=== PATIENT | female | born 1985 | race Caucasian/White ===

== ENCOUNTER 2020-02-07 11:59 | Outpatient (CLI) | payer BC | END 2020-02-07 12:00 | disposition home or self-care (01) | LOC: COV 11:59 | PROVIDERS: ATTEND Family Medicine | DX: R05 Cough (principal); J02.9 Acute pharyngitis, unspecified; Z20.828 Contact with and (suspected) exposure to other viral communicable diseases ==

== ENCOUNTER 2021-05-28 15:13 | Outpatient (CLI) | payer BC, OTHER ==
--- NOTE | 2021-05-28 18:23 | XRAY Report ---
PROCEDURE: Toe(s) LT INDICATIONS: LEFT GREAT TOE PAIN TECHNIQUE: 2 views of the left first toe(s) acquired. COMPARISON: None FINDINGS: Bones: Mildly displaced fracture involving the left first distal phalange. Soft tissues: No suspicious soft tissue densities. IMPRESSION: Left first distal phalange fracture. Reviewed by: Kim Rowe MD, PhD on 05/28/2021 5:22 PM [facility] Approved by: Kim Rowe MD, PhD on 05/28/2021 5:22 PM [facility] Station ID: [id number]
== END 2021-05-28 23:59 | disposition home or self-care (01) ==
LOC: DI.N 15:13
PROVIDERS: ATTEND Family Medicine
DX: S92.422A Displaced fracture of distal phalanx of left great toe, initial encounter for closed fracture (principal)
CPT/HCPCS: 73660

== ENCOUNTER 2021-07-15 15:15 | Outpatient (CLI) | payer BC, OTHER ==
--- NOTE | 2021-07-15 15:57 | XRAY Report ---
PROCEDURE: Toe(s) LT INDICATIONS: NONDISPLACED FX OF PROXIMAL PHALANX OF L GREAT TOE TECHNIQUE: 3 views of the first toe(s) acquired. COMPARISON: May 28, 2021 FINDINGS: BONES: Redemonstrated fracture deformity of the first distal phalanx. The fracture line appears less distinct, compatible with ongoing healing. SOFT TISSUES: Edema about the fracture site. IMPRESSION: 1.Ongoing healing of the patient's first distal phalanx fracture. Reviewed by: Manuel Savage MD on 07/15/2021 3:56 PM PST Approved by: Manuel Savage MD on 07/15/2021 3:56 PM PST Station ID: [id number]
== END 2021-07-15 23:59 | disposition home or self-care (01) ==
LOC: DI.N 15:15
PROVIDERS: ATTEND Physician Assistant
DX: S92.422D Displaced fracture of distal phalanx of left great toe, subsequent encounter for fracture with routine healing (principal)
CPT/HCPCS: 73660

== ENCOUNTER 2021-07-26 13:10 | Emergency (ER) | payer BC, OTHER ==
[2021-07-26 13:20] VITALS: BP 137/76
--- NOTE | 2021-07-26 13:26 | ED Physician Documentation ---
PD HPI LOWER EXT INJURY - Stated complaint Stated Complaint: RT FOOT PX - Chief complaint Chief Complaint: Ext Problem - History obtained from History obtained from: Patient (Inversion injury of the right foot yesterday and now pain at the proximal fifth metatarsal without other injuries. She is able to walk and bear weight. Declines pain medication.) Review of Systems Constitutional: reports: Reviewed and negative Eyes: reports: Reviewed and negative Ears: reports: Reviewed and negative Nose: reports: Reviewed and negative Throat: reports: Reviewed and negative PD PAST MEDICAL HISTORY - Allergies Allergies/Adverse Reactions: Allergies Allergy/AdvReac Type Severity Reaction Status Date / Time No Known Drug Allergies Allergy Verified 07/26/21 13:20 PD ED PE NORMAL - Vitals Vital signs reviewed: Yes - General General: Alert and oriented X 3, No acute distress - Extremities Extremities: Other (Focally tender with bruising at the proximal right fifth metatarsal without distal neurovascular compromise or ankle tenderness.) - Neuro Neuro: Alert and oriented X 3, Normal speech Results - Vitals Vitals: Vital Signs - 24 hr 07/26/21 13:16 Temperature 35.5 C L Heart Rate 83 Respiratory 18 Rate Blood Pressure 137/76 H O2 Saturation 98 Oxygen O2 Source Room air - Rads (name of study) R foot XR Radiology: EMP read contemporaneously (NAD) Departure - Departure Disposition: 01 Home, Self Care Clinical Impression: Right foot sprain Qualifiers: Encounter type: initial encounter Qualified Code(s): S93.601A - Unspecified sprain of right foot, initial encounter Condition: Good Record reviewed to determine appropriate education?: Yes Instructions: ED Sprain Foot Comments: You can use the fracture shoe you already have if you need it. But there is no reason you cannot walk and bear weight as tolerated. If not better in a week follow-up with your physician for recheck. Return for new or worsening symptoms. Discharge Date/Time: 07/26/21 13:44
--- NOTE | 2021-07-26 13:50 | XRAY Report ---
PROCEDURE: Foot 3 View RT INDICATIONS: Trauma TECHNIQUE: 3 views of the foot were acquired. COMPARISON: None FINDINGS: Bones: No fractures or dislocations. No suspicious bony lesions. Soft tissues: No tibiotalar joint effusion. Achilles tendon appears normal. IMPRESSION: No visualized acute fracture or dislocation. However, occult injury cannot be excluded. Recommend teresa rt interval imaging follow-up in 7-10 days as clinically indicated for additional evaluation. Reviewed by: Marilyn Bowers MD on 07/26/2021 1:49 PM [facility] Approved by: Marilyn Bowers MD on 07/26/2021 1:49 PM [facility] Station ID: [id number]
== END 2021-07-26 13:44 | disposition home or self-care (01) ==
LOC: ED 13:10
DX: S93.601A Unspecified sprain of right foot, initial encounter (principal); X50.1XXA Overexertion from prolonged static or awkward postures, initial encounter
CPT/HCPCS: 99282; 99283

== ENCOUNTER 2023-07-23 19:09 | Emergency (ER) | payer BC, OTHER ==
[2023-07-23 20:21] LABS: BASOPHILS # (AUTO) 0.1 10^3/uL (0.0-0.1); BASOPHILS % (AUTO) 0.6 %; EOSINOPHILS # (AUTO) 0.2 10^3/uL (0.0-0.7); EOSINOPHILS % (AUTO) 2.2 %; HCT - HEMATOCRIT 40.9 % (37.0-47.0); HGB - HEMOGLOBIN 13.3 g/dL (12.0-16.0); LYMPHOCYTES # (AUTO) 2.6 10^3/uL (1.5-3.5); LYMPHOCYTES % (AUTO) 30.8 %; MEAN CORPUSCULAR HEMOGLOBIN 29.4 pg (27.0-31.0); MEAN CORPUSCULAR HGB CONC 32.5 g/dL (32.0-36.0); MEAN CORPUSCULAR VOLUME 90.5 fL (81.0-99.0); MEAN PLATELET VOLUME 8.8 fL (7.9-10.8); MONOCYTES # (AUTO) 0.8 10^3/uL (0.0-1.0); MONOCYTES % (AUTO) 9.3 %; NEUTROPHILS # (AUTO) 4.9 10^3/uL (1.5-6.6); PLT - PLATELET COUNT 326 10^3/uL (130-450); RED BLOOD COUNT 4.52 10^6/uL (4.20-5.40); WHITE BLOOD COUNT 8.5 x10^3/uL (4.8-10.8)
--- NOTE | 2023-07-23 20:23 | ED Physician Documentation ---
PD HPI FOCAL NEURO - Stated complaint Stated Complaint: R LEG LIMP, DIFFICULTY TALKING - Chief complaint Chief Complaint: Neuro - History obtained from History obtained from: Patient - Additional information Additional information: Previously healthy 38-year-old woman with PCOS, otherwise healthy. She was walking out of her mom's house at 330 this afternoon when for a very short period of time, she estimates maybe 30 seconds, her right leg went wobbly and she was presyncopal and could not talk. Now feels back to normal with the exception of a mild frontal headache. No history of TIA or vascular disease. No possibility of . PD PAST MEDICAL HISTORY - Past Medical History Past Medical History: Yes Musculoskeletal: Other Other Past Medical History: Plantar fasciatis R foot - Past Surgical History Past Surgical History: Yes Ortho: Other - Present Medications Home Medications: Ambulatory Orders Medication Instructions Recorded Confirmed Bcp 07/23/23 Spironolactone [Aldactone] 50 mg PO DAILY 07/23/23 07/23/23 - Allergies Allergies/Adverse Reactions: Allergies Allergy/AdvReac Type Severity Reaction Status Date / Time No Known Drug Allergies Allergy Verified 07/23/23 20:05 - Social History Does the pt smoke?: No Smoking Status: Never smoker Does the pt drink ETOH?: Yes ETOH Use: Wine Does the pt have substance abuse?: No - Immunizations Immunizations are current?: Yes - POLST Patient has POLST: No PD ED PE NORMAL - Vitals Vital signs reviewed: Yes - General General: Alert and oriented X 3, No acute distress - HEENT HEENT: PERRL, EOMI - Neck Neck: Supple, no meningeal sign, No bony TTP - Cardiac Cardiac: RRR, No murmur - Respiratory Respiratory: No respiratory distress, Clear bilaterally - Abdomen Abdomen: Normal bowel sounds, Soft, Non tender - Back Back: No CVA TTP, No spinal TTP - Derm Derm: Normal color, Warm and dry - Neuro Neuro: Alert and oriented X 3, vp clinical 2-12 intact, No motor deficit, No sensory deficit, Normal speech Eye Opening: Spontaneous Motor: Obeys Commands Verbal: Oriented GCS Score: 15 - Psych Psych: Normal mood, Normal affect NIHSS - Time Time: 20:15 - Level of Consciousness Level of consciousness: (0) Alert, Keenly responsive LOC Questions: (0) Answers both Q's correct LOC Commands: (0) Performs both correctly - Gaze Best Gaze: (0) Normal - Visual Visual: (0) No loss - Facial Palsy Facial Palsy: (0) Normal, symmetrical movement - Motor Arms (both separate) Motor Arm (right): (0) No drift Motor Arm (left): (0) No drift - Motor Legs (both separate) Motor Leg (right): (0) No drift Motor Leg (left): (0) No drift - Limb Ataxia Limb Ataxia: (0) Absent - Sensory Sensory: (0) Normal - Best Language Best Language: (0) No aphasia - Dysarthria Dysarthria: (0) Normal - Extinction and Inattention (formally neg Extinction and inattention: (0) No abnormality - Total Score/Results Total Score/Result: 0 Results - Vitals Vitals: Vital Signs - 24 hr 07/23/23 07/24/23 07/24/23 19:58 00:24 00:50 Temperature 36.9 C 36.7 C Heart Rate 78 87 80 Respiratory 16 18 16 Rate Blood Pressure 138/77 H 118/79 122/73 O2 Saturation 100 98 98 Oxygen O2 Source Room air - Labs Labs: Laboratory Tests 07/23/23 07/23/23 07/23/23 20:13 20:13 20:30 WBC 8.5 RBC 4.52 Hgb 13.3 Hct 40.9 MCV 90.5 MCH 29.4 MCHC 32.5 RDW 12.0 Plt Count 326 MPV 8.8 Neut # (Auto) 4.9 Lymph # (Auto) 2.6 [place] # (Auto) 0.8 Eos # (Auto) 0.2 Baso # (Auto) 0.1 Absolute Nucleated RBC 0.00 Nucleated RBC % 0.0 Sodium 138 Potassium 3.6 Chloride 104 Carbon Dioxide 28 Anion Gap 6.0 BUN 11 Creatinine 0.7 Estimated GFR (MDRD) 94 Glucose 123 H Calcium 9.2 Total Bilirubin 0.2 AST 22 ALT 18 Alkaline Phosphatase 38 L Total Protein 7.0 Albumin 4.1 Globulin 2.9 Albumin/Globulin Ratio 1.4 Urine Color YELLOW Urine Clarity CLEAR Urine pH 6.0 Ur Specific [place] >=1.030 H Urine Protein NEGATIVE Urine Glucose (UA) NEGATIVE Urine Ketones NEGATIVE Urine Occult Blood TRACE-INTA Urine Nitrite NEGATIVE Urine Bilirubin NEGATIVE Urine Urobilinogen 0.2 (NORMAL) Ur Leukocyte Esterase NEGATIVE Ur Microscopic Review NOT INDICATED Urine Culture Comments NOT INDICATED Urine HCG, Qual NEGATIVE PD Medical Decision Making - ED course ED course: Symptoms would be most closely be reminiscent of a TIA, that said they are fairly atypical having lasted only 30 seconds, with an otherwise healthy young person. That said I think the safest thing to do would be presume this was a TIA type attack and perform angiographic imaging of the brain and carotid vasculature. Lab work with CBC, CMP, and urinalysis were unremarkable save high of specific gravity on the urinalysis. She also has mild hyperglycemia Care to overnight emergency physician pending radiology reads on CT/CT angiography of the head and neck. Departure - Departure Disposition: Home, Self Care Clinical Impression: TIA (transient ischemic attack) Condition: Good Record reviewed to determine appropriate education?: Yes Instructions: ED Transient Ischemic Attack Comments: As discussed, I am not convinced that what happened to today represents a TIA but it does seem to be the closest match to what you are describing. That said TIAs usually are lasting somewhat longer than the episode you had. I would recommend until you follow-up with your primary care physician and take a baby aspirin a day. Call your doctor to arrange a follow-up appointment, make the next available appointment. In the interim, return anytime if worse or if new symptoms develop. Your labs were notable for a mild elevation in your blood sugar at 123. I would not consider this to be indicative of diabetes but does need to be followed at least yearly by your primary as well. You did have a polyp in your sinus, consider ENT followup. Forms: PCP List Discharge Date/Time: 07/24/23 01:05
[2023-07-23 20:32] LABS: ALBUMIN 4.1 g/dL (3.2-5.5); ALBUMIN/GLOBULIN RATIO 1.4 (1.0-2.2); BILIRUBIN,TOTAL 0.2 mg/dL (0.2-1.0); CALCIUM 9.2 mg/dL (8.5-10.3); CREATININE 0.7 mg/dL (0.6-1.3); POTASSIUM 3.6 mmol/L (3.5-4.5)
[2023-07-23 20:44] LABS: BILIRUBIN,URINE NEGATIVE (NEGATIVE); GLUCOSE, URINE (UA) NEGATIVE (NEGATIVE); KETONES,URINE (UA) NEGATIVE (NEGATIVE); LEUKOCYTE ESTERASE, URINE NEGATIVE (NEGATIVE); NITRITE,URINE NEGATIVE (NEGATIVE); OCCULT BLOOD,URINE TRACE-INTA (NEGATIVE); PROTEIN,URINE NEGATIVE (NEGATIVE); UROBILINOGEN,URINE 0.2 (NORMAL) E.U./dL (NORMAL)
[2023-07-23 21:01] LABS: CLARITY,URINE CLEAR (CLEAR); HCG UR QUAL NEGATIVE
[2023-07-23] MEDS ORDERED: iohexoL-300 100 ML VIAL IVP ONE (22:08)
[2023-07-24 00:33] VITALS: O2SAT 98
--- NOTE | 2023-07-24 00:40 | CT Report ---
PROCEDURE: HEAD WO INDICATIONS: tia sx TECHNIQUE: Noncontrast 4.5 mm thick angled axial sections acquired from the foramen magnum to the vertex. For r adiation dose reduction, the following was used: automated exposure control, adjustment of mA and/or kV according to patient size. COMPARISON: None. FINDINGS: Image quality: Excellent. CSF spaces: Basal cisterns are patent. No extra-axial fluid collections. Ventricles are normal in size and shape. Brain: No midline shift. No intracranial masses or hemorrhage. Yoon-white matter interface is norm al. Skull and face: Calvarium and visualized facial bones are intact, without suspicious lesions. Sinuses: Visualized sinuses and mastoids are clear. IMPRESSION: No acute intracranial pathology. Reviewed by: Tayla Jules MD on 07/24/2023 12:39 AM PST Approved by: Tayla Jules MD on 07/24/2023 12:39 AM PST Station ID: [id number]
--- NOTE | 2023-07-24 00:47 | CT Report ---
PROCEDURE: CT Angio Head/Neck INDICATIONS: tia sx TECHNIQUE: After the administration of intravenous contrast, 1 mm thick sections acquired from the aortic arch t hrough the [place] of [place]. 3-dimensional gmjzbqw-csucsoysz-chatxsmknq (MIP) and/or volume renderin g reformats were acquired of the central intracranial vasculature and neck separately. For radiation dose reduction, the following was used: automated exposure control, adjustment of mA and/or kV acco rding to patient size. CONTRAST: 100 ML OMNI 300 COMPARISON: CT head noncontrast 07/23/2023 obtained concurrently. FINDINGS: Image quality: Diagnostic. HEAD CT: CSF Spaces: Basal cisterns are patent. No extra-axial fluid collections. Ventricles are normal in size and shape. Brain: No significant abnormality is seen for scanning technique. Skull and face: Calvarium and visualized facial bones appear intact, without suspicious lesions. Sinuses: Visualized sinuses and mastoids are clear. HEAD CT ANGIOGRAPHY: Anterior circulation: Intracranial internal carotid arteries are normal in size and flow. The flow within the paired anterior cerebral arteries is normal and symmetric. The flow within the middle cer ebral arteries is normal and symmetric. The anterior communicating artery is seen. No aneurysms are seen. Posterior circulation: Visualized portions of the vertebral arteries demonstrate normal caliber, and join to form a normal appearing basilar artery. Flow within the posterior cerebral arteries is norm al and symmetric. No aneurysms are seen. NECK CT ANGIOGRAPHY: Carotid system: The great vessels demonstrate a conventional anatomy as they arise from the aortic a rch. The origins of the common carotid arteries appear patent. The common carotid arteries demonstr ate normal caliber and courses. The bifurcation regions are both widely patent. The internal caroti d arteries demonstrate normal calibers and courses. Posterior circulation: The origins of the vertebral arteries both appear widely patent. The more triana perior extracranial portions of both vertebral arteries also demonstrate normal courses and calibers. They join to form a normal appearing basilar artery. Soft tissues: Visualized neck soft tissues demonstrate no suspicious abnormalities. Bones: No suspicious bony lesions. Visualized cervical spine appears normally aligned. IMPRESSION: No significant acute intracranial process. No abnormal enhancement. No significant intracranial arterial abnormality. No hemodynamically significant stenosis in the cervical arteries. The estimate of stenosis included in the report of the imaging study was calculated using the NASCET method Reviewed by: Tayla Jules MD on 07/24/2023 12:45 AM PST Approved by: Tayla Jules MD on 07/24/2023 12:45 AM PST Station ID: [id number]
--- NOTE | 2023-07-24 00:53 | ED Physician Documentation ---
ED Addendum - Addendum Addendum: 07/24/23 00:52 Patient received a signout from outgoing physician, please see their do cumentation for further detail. Patient received with imaging CTA head and neck pending. Imaging is reviewed. Radiology report reviewed. No acute intracranial abnormality appreciated. Patient evaluated independently by myself. Denies any ongoing symptoms. At this time we will discharge per the off going physician's plan with instructions for use daily aspirin and careful follow-up with primary care with clear return precautions for any new or worsening symptoms given.
[2023-07-24 01:04] VITALS: BP 122/73
== END 2023-07-24 01:05 | disposition home or self-care (01) ==
LOC: ED 19:09
DX: G45.9 Transient cerebral ischemic attack, unspecified (principal); R73.9 Hyperglycemia, unspecified; J33.8 Other polyp of sinus
CPT/HCPCS: 36415; 70450; 70496; 70498; 80053; 81003; 81025; 85025; 99284; Q9967; 81001; 87086

== ENCOUNTER 2023-09-28 12:25 | Emergency (ER) | payer BC, OTHER ==
[2023-09-28 13:23] LABS: BASOPHILS % (AUTO) 0.3 %; HGB - HEMOGLOBIN 13.9 g/dL (12.0-16.0); LYMPHOCYTES # (AUTO) 1.2 10^3/uL (1.5-3.5); LYMPHOCYTES % (AUTO) 8.5 %; MEAN CORPUSCULAR HEMOGLOBIN 30.3 pg (27.0-31.0); MEAN CORPUSCULAR HGB CONC 33.1 g/dL (32.0-36.0); MEAN CORPUSCULAR VOLUME 91.7 fL (81.0-99.0); MONOCYTES # (AUTO) 0.3 10^3/uL (0.0-1.0); MONOCYTES % (AUTO) 1.8 %; PLT - PLATELET COUNT 327 10^3/uL (130-450); RED BLOOD COUNT 4.58 10^6/uL (4.20-5.40); RED CELL DISTRIBUTION WIDTH 12.5 % (12.0-15.0); WHITE BLOOD COUNT 14.6 x10^3/uL (4.8-10.8)
[2023-09-28 13:40] LABS: ALBUMIN 4.4 g/dL (3.2-5.5); ALBUMIN/GLOBULIN RATIO 1.6 (1.0-2.2); BILIRUBIN,TOTAL 0.3 mg/dL (0.2-1.0); CALCIUM 9.5 mg/dL (8.5-10.3); CREATININE 0.8 mg/dL (0.6-1.3); MAGNESIUM 1.8 mg/dL (1.7-2.3); TOTAL PROTEIN 7.2 g/dL (6.4-8.9)
--- NOTE | 2023-09-28 16:20 | ED Physician Documentation ---
History of Present Illness - Stated complaint Stated Complaint: DIZZINESS,NAUSEA - Chief complaint Chief Complaint: Neuro - Additonal information Additional information: 38-year-old female recently recovering from an upper respiratory infection and plugged ears. Patient noticed sudden onset dizziness to the point where she felt the room was spinning she was unable to walk or keep her balance she recently went to urgent care where they sent her here because apparently on patient's record there is a history of a TIA she said the provider at the time did not know if it was vertigo or TIA and so the provider put TIA on her chart. She has got no unilateral weakness no focal neurological deficits she has got mild nausea no emesis and she feels like overall her symptoms have significantly improved and she is feeling a lot better since being here if she turns her head too fast and certain motions she is able to elicit the dizziness/vertigo sensation. She said no recent falls no trauma to the head. PD PAST MEDICAL HISTORY - Past Medical History Past Medical History: Yes Cardiovascular: None Respiratory: None Neuro: None Endocrine/Autoimmune: None GI: None V BELT FINISHER: None, Other : None HEENT: None Psych: Anxiety, ADD/ADHD Musculoskeletal: Other Derm: None - Past Surgical History Past Surgical History: Yes Ortho: Other - Present Medications Home Medications: Ambulatory Orders Medication Instructions Recorded Confirmed Spironolactone [Aldactone] 50 mg PO DAILY 07/23/23 09/28/23 Amox/Clav 875/125 [Augmentin 1 tablet PO Q12H 09/28/23 09/28/23 875/125 Tab] Levonorgestrel-Ethin Estradiol 1 each PO DAILY 09/28/23 09/28/23 [Ayuna-28 Tablet] Meclizine [Antivert] 25 mg PO Q6H PRN #15 tablet 09/28/23 Ondansetron Odt [Zofran Odt] 4 mg TL Q6H PRN #10 tablet 09/28/23 predniSONE [Deltasone] 1 tablet PO [id number] 09/28/23 09/28/23 - Allergies Allergies/Adverse Reactions: Allergies Allergy/AdvReac Type Severity Reaction Status Date / Time No Known Drug Allergies Allergy Verified 09/28/23 12:38 - Social History Does the pt smoke?: No Smoking Status: Never smoker Does the pt drink ETOH?: Yes Does the pt have substance abuse?: No - Immunizations Immunizations are current?: Yes - POLST Patient has POLST: No PD ED PE NORMAL - Vitals Vital signs reviewed: Yes - General General: Alert and oriented X 3, No acute distress, Well developed/nourished - HEENT HEENT: Atraumatic, PERRL, EOMI, Ears normal, Moist mucous membranes - Neck Neck: Supple, no meningeal sign - Cardiac Cardiac: RRR, No murmur, No gallop, Strong equal pulses - Respiratory Respiratory: No respiratory distress, Clear bilaterally - Extremities Extremities: No deformity, No tenderness to palpate, Normal ROM s pain, No edema, No calf tenderness / cord - Neuro Neuro: Alert and oriented X 3, No motor deficit, No sensory deficit, Normal speech Eye Opening: Spontaneous Motor: Obeys Commands Verbal: Oriented GCS Score: 15 Results - Vitals Vitals: Vital Signs - 24 hr 09/28/23 09/28/23 12:40 16:42 Temperature 36.1 C L 37.1 C Heart Rate 77 68 Respiratory 16 16 Rate Blood Pressure 118/72 117/67 O2 Saturation 100 98 Oxygen O2 Source Room air - Labs Labs: Laboratory Tests 09/28/23 09/28/23 13:19 13:19 WBC 14.6 H RBC 4.58 Hgb 13.9 Hct 42.0 MCV 91.7 MCH 30.3 MCHC 33.1 RDW 12.5 Plt Count 327 MPV 9.0 Neut # (Auto) 13.0 H Lymph # (Auto) 1.2 L Wise # (Auto) 0.3 Eos # (Auto) 0.0 Baso # (Auto) 0.0 Absolute Nucleated RBC 0.00 Nucleated RBC % 0.0 Sodium 137 Potassium 4.0 Chloride 103 Carbon Dioxide 30 Anion Gap 4.0 L BUN 14 Creatinine 0.8 Estimated GFR (MDRD) 80 L Glucose 207 H Calcium 9.5 Magnesium 1.8 Total Bilirubin 0.3 AST 28 ALT 25 Alkaline Phosphatase 42 Total Protein 7.2 Albumin 4.4 Globulin 2.8 Albumin/Globulin Ratio 1.6 PD Medical Decision Making - ED course ED course: 38-year-old female presents emergency department for dizziness. Labs are c ollected she does appear to have some leukocytosis, WBC 14.6, neutrophils slightly elevated at 13.0 lymphocytes 1.2 she does not have any significant electrolyte abnormalities potassium and magnesium are normal, blood sugar 207. Patient's dizziness most consistent with a peripheral cause, likely BPPV. doubt vestibular neuritis, No ear ringing or buzzing sound. History not consistent with meniere's disease. No history of trauma. No red flag features for central vertigo to include gradual onset, vertical/bidirectional or non-fatigable nystagmus, focal neurologic findings on exam (including inability to ambulate, ataxia, dysmetria). Presentation not consistent with an acute PATIENT CARE COORDINATOR infection, vertebral basilar artery insufficiency, cerebellar hemorrhage or infarction, intracranial mass or bleed. Patient reports while she was sitting in the emergency department her symptoms are actually significantly improved she did get meclizine to help with the dizziness and a prescription of meclizine was sent to her preferred pharmacy. She was also told to follow-up with doing some research with how to do Mara's maneuver at home Departure - Departure Disposition: 01 Home, Self Care Clinical Impression: BPPV (benign paroxysmal positional vertigo) Qualifiers: Laterality: unspecified laterality Qualified Code(s): H81.10 - Benign paroxysmal vertigo, unspecified ear Instructions: Vertigo Paroxysmal Positional Prescriptions: Meclizine [Antivert] 25 mg PO Q6H PRN #15 tablet PRN Reason: Dizziness Ondansetron Odt [Zofran Odt] 4 mg TL Q6H PRN #10 tablet PRN Reason: Nausea / Vomiting Comments: Thank you for trusting us with your care. As we discussed I believe that you are experiencing BPPV please look up on YouTube Mara's maneuver and to for exercises you can help with clearing this out. I have sent a prescription of meclizine and Zofran to your preferred pharmacy. Please follow-up with your primary care provider in regards to your eustachian tube dysfunction. Please come back to the emergency department for having any one-sided weakness, or any other neurological concerning deficits. Wishing you a speedy recovery. Forms: PCP List Discharge Date/Time: 09/28/23 16:49
[2023-09-28] MEDS: MECLIZINE 12.5 MG TABLET PO STA (16:46)
[2023-09-28] MEDS: ONDANSETRON ODT 4 MG TABLET TL STA (16:46)
[2023-09-28 16:50] VITALS: BP 117/67; O2SAT 98
== END 2023-09-28 16:49 | disposition home or self-care (01) ==
LOC: ED 12:25
DX: H81.10 Benign paroxysmal vertigo, unspecified ear (principal); Z86.73 Personal history of transient ischemic attack (TIA), and cerebral infarction without residual deficits; Z79.899 Other long term (current) drug therapy
CPT/HCPCS: 36415; 80053; 83735; 85025; 99283; A9270; Q0162